=== PATIENT | male | born 1995 | race African-American/Black ===

== ENCOUNTER 2019-01-15 13:26 | Emergency (ER) | payer SELFPAY ==
[~2019-01-15] VITALS: Ht 172.7 cm; Wt 71.2 kg
[~2019-01-15 13:26] MED LIST: DROXIA400 MG PO; PENICILLIN250 MG PO
[2019-01-15 14:31] LABS: HEMATOCRIT 36.1 % (42.0-52.0); HEMOGLOBIN 13.2 g/dl (14.0-18.0); MEAN CELL VOLUME 79.7 fl (80.0-94.0); MEAN CORPUSCULAR HGB 29.1 pg (27.0-31.0); MEAN CORPUSCULAR HGB CONC 36.6 g/dl (33.0-37.0); MEAN PLATELET VOLUME 9.9 fl (9.6-12.3); NUCLEATED RED BLOOD CELL 0.1 10*3/uL (0.0-0.0); NUCLEATED RED BLOOD CELL 0.4 % (0.0-0.0); PLATELET COUNT AUTOMATED 181 10*3/uL (130-400); RED BLOOD COUNT 4.53 10*6/uL (4.50-5.90); RED CELL DISTRI WIDTH 15.8 % (0-14.5)
[2019-01-15 14:44] LABS: BUN 8 mg/dl (7-24); CHLORIDE 101 mmol/L (98-107); CREATININE 1.16 mg/dL (0.70-1.30); POTASSIUM 3.8 mmol/L (3.5-5.1); SODIUM 135 mmol/L (136-145)
[2019-01-15 15:01] LABS: POLYCHROMASIA SLIGHT; TARGET CELLS MANY; TOTAL CELLS COUNTED 100 #CELLS; VACUOLATION OF NEUTROPHILS SLIGHT
[2019-01-15 15:02] LABS: PLATELET SUFFICIENCY NORMAL (NORMAL)
== END 2019-01-15 19:27 | disposition left against medical advice (07) ==
LOC: ED 13:26
PROVIDERS: Nurse Practitioner Family
DX: J02.0 Streptococcal pharyngitis (principal); M54.5 Low back pain; E86.0 Dehydration; F17.200 Nicotine dependence, unspecified, uncomplicated; Z79.2 Long term (current) use of antibiotics; Z79.899 Other long term (current) drug therapy

== ENCOUNTER 2019-02-11 11:29 | Emergency (ER) | payer SELFPAY ==
[~2019-02-11] VITALS: Ht 172.7 cm; Wt 72.6 kg
[2019-02-11] MEDS ORDERED: AMOXICILLI400 MG/51 PO (11:52)
== END 2019-02-11 12:02 | disposition home or self-care (01) ==
LOC: ED 11:29
DX: J02.9 Acute pharyngitis, unspecified (principal); Z20.2 Contact with and (suspected) exposure to infections with a predominantly sexual mode of transmission; Z79.899 Other long term (current) drug therapy